=== PATIENT | male | born 1975 | race Caucasian/White ===

== ENCOUNTER → 2017-12-28 | Outpatient (CLI) | payer OTHER | END | disposition home or self-care (01) | LOC: KCIC US 08:52 | DX: K76.0 Fatty (change of) liver, not elsewhere classified (principal); R16.0 Hepatomegaly, not elsewhere classified; Q53.20 Undescended testicle, unspecified, bilateral; I86.1 Scrotal varices | CPT/HCPCS: 76700; 76870 ==